=== PATIENT | male | born 1950 | race American Indian/Alaskan Native ===

== ENCOUNTER 2021-01-10 08:02 | Inpatient (IN) | payer MEDICARE ==
--- NOTE | 2021-01-10 08:25 | Emergency Department Report ---
HPI - General Chief Complaint: Neuro Symptoms/Deficit Time Seen by Provider: 01/10/21 08:19 - HPI HPI: This is a 70-year-old -[place] male who presents to the emergency department from home with a complaint of left hand numbness and left arm weakn ess that started about 3 hours ago. The patient has a past medical history of a previous stroke that he says did not leave him with any residual neurological deficits. He also has a history of hypertension and says that he recently was told he has developed diabetes. He did not take anything for his symptoms prior to presentation. He denies any headache, vision change, slurred speech, chest pain, back pain. No recent travel or sick contacts at home. He denies any tobacco or illicit drug use. ED Past Medical Hx - Past Medical History Previous Medical History?: Yes Hx Hypertension: Yes Hx Heart Attack/AMI: Yes Additional medical history: stroke 3 years ago, no deficits - Surgical History Past Surgical History?: No - Social History Smoking Status: Never Smoker Substance Use Type: None ED Review of Systems ROS: Stated complaint: LT SIDE NUMB Other details as noted in HPI Comment: All other systems reviewed and negative Constitutional: weakness. denies: chills, fever Eyes: denies: eye pain, vision change ENT: denies: ear pain, throat pain Respiratory: denies: cough, shortness of breath Cardiovascular: denies: chest pain, palpitations Gastrointestinal: denies: abdominal pain, vomiting Genitourinary: denies: dysuria, discharge Musculoskeletal: denies: back pain, arthralgia Skin: denies: rash, lesions Neurological: weakness, numbness. denies: headache Physical Exam - Physical Exam Vital Signs: Vital Signs 01/10/21 08:05 Temperature 98 F Pulse Rate 108 H Respiratory 16 Rate Blood Pressure 203/112 O2 Sat by Pulse 96 Oximetry Physical Exam: GENERAL: The patient is well-developed well-nourished. HENT: Normocephalic. Atraumatic. Patient has moist mucous membranes. EYES: Extraocular motions are intact. Pupils equal reactive to light bilaterally. No nystagmus. NECK: Supple. Trachea is midline. CHEST/LUNGS: Clear to auscultation. There is no respiratory distress noted. HEART/CARDIOVASCULAR: Regular. There is no tachycardia. There is no murmur. ABDOMEN: Abdomen is soft, nontender. Patient has normal bowel sounds. There is no abdominal distention. SKIN: Skin is warm and dry. NEURO: The patient is awake, alert, and oriented. The patient is cooperative. There is some subjective decrease sensation to the left distal forearm and hand when compared to the right. There is a mild left upper extremity pronator drift. The left director security risk management strength is weak when compared to the right. No facial asymmetry. No slurred speech. MUSCULOSKELETAL: There is no tenderness or deformity. Radial pulse +2/4 and capillary refill less than 2 seconds to the affected left upper extremity. ED Course Vital Signs 01/10/21 08:05 Temperature 98 F Pulse Rate 108 H Respiratory 16 Rate Blood Pressure 203/112 O2 Sat by Pulse 96 Oximetry - Consultations Consultation #1: 01/10/21 08:51 Patient was seen by the telemedicine neurologist, Dr. Wilson. The patient went to sleep normal and woke up with the strokelike symptoms and therefore is outside of the TPA window. Dr. Wilson feels that he sees some developing stroke in the right occipital region. He recommends CT angiography of the head and ne ck and if no need for interventional thrombectomy intervention, the patient will be admitted for further stroke work-up. ED Medical Decision Making - Lab Data Result diagrams: 01/10/21 08:27 01/10/21 08:27 Lab Results 01/10/21 01/10/21 01/10/21 Range/Units 08:27 08:27 08:27 WBC 7.5 (4.5-11.0) K/mm3 RBC 4.02 (3.65-5.03) M/mm3 Hgb 12.1 (11.8-15.2) gm/dl Hct 37.3 (35.5-45.6) % MCV 93 (84-94) fl MCH 30 (28-32) pg MCHC 33 (32-34) % RDW 14.7 (13.2-15.2) % Plt Count 122 L (140-440) K/mm3 Lymph % (Auto) 12.5 L (13.4-35.0) % Delta % (Auto) 4.2 (0.0-7.3) % Eos % (Auto) 0.3 (0.0-4.3) % Baso % (Auto) 0.5 (0.0-1.8) % Lymph # (Auto) 0.9 L (1.2-5.4) K/mm3 Delta # (Auto) 0.3 (0.0-0.8) K/mm3 Eos # (Auto) 0.0 (0.0-0.4) K/mm3 Baso # (Auto) 0.0 (0.0-0.1) K/mm3 Seg Neutrophils % 82.5 H (40.0-70.0) % Seg Neutrophils # 6.2 (1.8-7.7) K/mm3 PT 12.5 (12.2-14.9) Sec. INR 0.95 (0.87-1.13) APTT 31.8 (24.2-36.6) Sec. Thrombin Time 16.0 (15.1-19.6) Sec. Sodium 141 (137-145) mmol/L Potassium 4.4 (3.6-5.0) mmol/L Chloride 102.8 (98-107) mmol/L Carbon Dioxide 28 (22-30) mmol/L Anion Gap 15 mmol/L BUN 17 (9-20) mg/dL Creatinine 1.0 (0.8-1.3) mg/dL Estimated GFR > 60 ml/min BUN/Creatinine Ratio 17 % Glucose 101 H (75-100) mg/dL Calcium 9.4 (8.4-10.2) mg/dL Total Bilirubin 0.30 (0.1-1.2) mg/dL AST 21 (5-40) units/L ALT 15 (7-56) units/L Alkaline Phosphatase 70 (35-129) units/L Total Creatine Kinase 133 (55-170) units/L CK-MB (CK-2) 2.7 (0.0-4.0) ng/mL CK-MB (CK-2) Rel Index 2.0 (0-4) Troponin T < 0.010 (0.00-0.029) ng/mL Total Protein 7.7 (6.3-8.2) g/dL Albumin 4.5 (3.9-5) g/dL Albumin/Globulin Ratio 1.4 % Plasma/Serum Alcohol (0-0.07) % // Range/Units 08:27 WBC (4.5-11.0) K/mm3 RBC (3.65-5.03) M/mm3 Hgb (11.8-15.2) gm/dl Hct (35.5-45.6) % MCV (84-94) fl MCH (28-32) pg MCHC (32-34) % RDW (13.2-15.2) % Plt Count (140-440) K/mm3 Lymph % (Auto) (13.4-35.0) % Delta % (Auto) (0.0-7.3) % Eos % (Auto) (0.0-4.3) % Baso % (Auto) (0.0-1.8) % Lymph # (Auto) (1.2-5.4) K/mm3 Delta # (Auto) (0.0-0.8) K/mm3 Eos # (Auto) (0.0-0.4) K/mm3 Baso # (Auto) (0.0-0.1) K/mm3 Seg Neutrophils % (40.0-70.0) % Seg Neutrophils # (1.8-7.7) K/mm3 PT (12.2-14.9) Sec. INR (0.87-1.13) APTT (24.2-36.6) Sec. Thrombin Time (15.1-19.6) Sec. Sodium (137-145) mmol/L Potassium (3.6-5.0) mmol/L Chloride (98-107) mmol/L Carbon Dioxide (22-30) mmol/L Anion Gap mmol/L BUN (9-20) mg/dL Creatinine (0.8-1.3) mg/dL Estimated GFR ml/min BUN/Creatinine Ratio % Glucose (75-100) mg/dL Calcium (8.4-10.2) mg/dL Total Bilirubin (0.1-1.2) mg/dL AST (5-40) units/L ALT (7-56) units/L Alkaline Phosphatase (35-129) units/L Total Creatine Kinase (55-170) units/L CK-MB (CK-2) (0.0-4.0) ng/mL CK-MB (CK-2) Rel Index (0-4) Troponin T (0.00-0.029) ng/mL Total Protein (6.3-8.2) g/dL Albumin (3.9-5) g/dL Albumin/Globulin Ratio % Plasma/Serum Alcohol < 0.01 (0-0.07) % - EKG Data -: EKG Interpreted by [facility] EKG shows normal: sinus rhythm, axis, intervals, QRS complexes (Incomplete right bundle branch block), ST-T waves Rate: normal - EKG Data When compared to previous EKG there are: previous EKG unavailable Interpretation: other (Sinus rhythm, normal axis, rate of 94 bpm, incomplete right bundle branch block) - Radiology Data Radiology results: report reviewed CT HEAD WITHOUT CONTRAST HISTORY: MAIN Left-sided numbness COMPARISON: None TECHNIQUE: CT imaging of the head was performed in the axial, sagittal, and coronal projections and bone algorithm in axial projection in the soft tissue algorithm. All CT scans at this location are performed using CT dose reduction for ALARA by means of automated exposure control. CONTRAST: None. FINDINGS: Cerebral and Cerebellar Hemispheres: Large zone of decreased attenuation involving the right posterior parietal lobe and right occipital lobe with effacement of overlying sulci and loss of the barrett-white matter differentiation. No extra-axial fluid collection. Ventricles: Normal in size and configuration for age. Osseous Structures: No significant abnormality. Visualized Paranasal Sinuses: No significant abnormality. Additional Findings: None IMPRESSION: 1. Abnormal CT of the brain is noted, most consistent with infarct. CTA head with intravenous contrast CLINICAL HISTORY: Code stroke. Cerebrovascular accident. Abnormal head CT with evidence of right occipital and parietal infarction in the posterior cerebral artery distribution. TECHNIQUE: 0.625 mm thick contiguous axial scans were obtained from the skull base to the skull vertex during rapid bolus administration of intravenous contrast material. Multiplanar reconstructions were produced in the coronal and sagittal planes. In addition 3 plane MIP instructions were produced and reviewed for this report. The axial source images and reconstructed images were reviewed for this report. CONTRAST DOSE REPORT: Omnipaque 350: 100 ml administered intravenously. All CT scans at this location are performed using CT dose reduction for ALARA by means of automated exposure control. FINDINGS: Internal carotid arteries:Cony, cavernous, opthalmic, clinoid and supraclinoid segments of the ICAs have an unremarkable appearance. Middle cerebral arteries:Normal and symm etrical M1 segments of the middle cerebral arteries are demonstrated. No abnormalities are seen on evaluation of the insular or opercular branches. Anterior cerebral arteries:Bilaterally symmetrical A1 segments are demonstrated. No abnormalities are seen along the course of the A2 segments or their visualized pericallosal branches. Vertebral arteries:Bilaterally symmetrical vertebral arteries are demonstrated. Both vertebral arteries contribute to the basilar artery origin. Basilar artery:Basilar artery has an unremarkable appearance. Posterior cerebral arteries: Bilaterally symmetrical posterior cerebral arteries are identified. Dural sinuses: Dural venous sinuses are well demonstrated on this exam. There is no evidence of dural sinus thrombosis. IMPRESSION: No significant abnormality on CTA head. CTA neck without and with intravenous contrast material CLINICAL HISTORY: MAIN TECHNIQUE: Following acquisition of a timing bolus 0.625 mm thick contiguous axial scans were obtained from aortic arch to the skull base during rapid bolus intravenous contrast infusion. In addition to evaluation of axial source images multiplanar reconstructions were produced and reviewed for this report. 3 plane MIP reconstructions were produced and reviewed. Contrast dose report: Omnipaque 350: 100 ml, administered intravenously All CT examinations performed at this facility utilize modulated dose reduction, iterative reconstruction or weight-based dosing, as appropriate, to obtain a radiation dose which is as low as can reasonably be achieved. FINDINGS: Thoracic aorta:No abnormalities are identified along the course of the thoracic aorta..The origins of the great vessels have an unremarkable appearance. Brachiocephalic artery, left common carotid artery origin and left subclavian artery all have an unremarkable appearance. Right carotid artery:No abnormalities are seen along the course of the RCCA, at the right carotid bifurcation or along the cervical portions of the GARIMA. Left carotid artery: No abnormalities are noted along the course of the left common carotid artery, at the left carotid bifurcation or along the course of the cervical segments of the LICA. Posterior circulation:The vertebral arteries have an unremarkable appearance. Both vertebral arteries contribute to the basilar artery origin. The basilar artery has an unremarkable appearance. The degree of stenosis, if any, is determined utilizing NASCET like criteria. In this case there is no indication of hemodynamically significant stenosis at the carotid bifurcations or elsewhere. There is a mass in the lower pole of the left lobe of the thyroid gland. Correlation with dedicated thyroid ultrasound is advised. Evaluation of the nonvascular soft tissue structures reveal no additional abnormality. There is no indication of cervical lymphadenopathy. No abnormalities are seen along the course of the airway. Visualized portions of the parotid glands and the submandibular salivary glands have a normal appearance. Evaluation of the lung apices reveals no evidence of lung nodule or infiltrate. Widespread cervical spondylosis is noted. Degenerative changes superimposed on unfavorably narrowed central spinal canal contribute to central canal stenosis at multiple levels including C3-4, C4-5, C5-6 and C6-7 levels. This is most pronounced at the C4-5 level where the AP diameter of the spinal canal is about 6 mm. IMPRESSION: 1. No indication of hemodynamically significant stenosis at the carotid bifurcations or elsewhere. 2. Widespread cervical spondylosis with multifocal central canal stenosis. 3. Incidental thyroid nodule measuring 2 cm located in lower pole left lobe thyroid gland. Dedicated thyroid ultrasound is advised. - Medical Decision Making This patient presents to the emergency department with a complaint of left upper extremity numbness and weakness. The patient woke up with the symptoms and therefore is outside of the window for TPA. A code stroke was initiated. The patient was seen by the telemedicine neurologist who felt that the CT shows a right occipital/parietal developing stroke. Radiology also feels that there is an acute infarct in this area. The patient is a 2 on the NIH stroke scale. Neurology recommended CT angiography studies of the head and neck. These did not show any acute occlusion, thrombosis, or significant stenosis that would require transfer for intervention. The patient's labs have been mostly unremarkable including CBC, metabolic panel, troponin, coags. Patient does present with elevated blood pressure and has received some IV antihypertensive medication. He was given a full dose aspirin after the negative CT head. Patient will be admitted to the hospital for further evaluation and treatment and was accepted for admission by the hospitalist, Dr. Ventura. Critical Care Time: Yes Critical care time in (mins) excluding proc time.: 35 Critical care attestation.: If time is entered above; I have spent that time in minutes in the direct care of this critically ill patient, excluding procedure time. Critical care time was spent on this patient in doing his initial evaluation, multiple reevaluations, ordering and interpretation of labs and imaging, discussion with telemedicine neurology, discussion with radiology, multiple discussions with the patient. Critical Care Time: 35 minutes ED Disposition Clinical Impression: Hypertensive urgency CVA (cerebral vascular accident) Qualifiers: CVA mechanism: unspecified Qualified Code(s): I63.9 - Cerebral infarction, uns pecified Disposition: OP ADMIT IP TO THIS HOSP Is pt being admited?: Yes Condition: Serious Referrals: PRIMARY CARE,MD [Primary Care Provider] - 3-5 Days Time of Disposition: 10:12 - Assessment Assessment Interval: Baseline - Level of Consciousness 1a. Level of Consciousness: alert/keenly responsive - LOC Questions 1b. LOC Questions: answers both correctly - LOC Command 1c. LOC Commands: performs tasks correctly - Best Gaze 2. Best Gaze: normal - Visual 3. Visual: no visual loss - Facial Palsy 4. Facial Palsy: normal symmetrical movement - Motor Arm 5a. Motor Arm Left: drift 5b. Motor Arm Right: no drift - Motor Leg 6a. Motor Leg Left: no drift 6b. Motor Leg Right: no drift - Limb Ataxia 7. Limb Ataxia: absent - Sensory 8. Sensory: mild/moderate sensory loss - Best Language 9. Best Language: no aphasia - Dysarthria 10. Dysarthria: normal - Extinction and Inattention 11. Extinction/Inattention: no abnormality - Scoring Total Score: 2 Stroke Severity: Minor Stroke
--- NOTE | 2021-01-10 08:53 | Consultation ---
Medications and Allergies Allergies Allergy/AdvReac Type Severity Reaction Status Date / Time No Known Allergies Allergy Verified 01/10/21 08:05 Physical Examination - Vital Signs Vital Signs: Vital Signs Temp Pulse Resp BP Pulse Ox 98 F 108 H 16 203/112 96 01/10/21 08:05 01/10/21 08:05 01/10/21 08:05 01/10/21 08:05 01/10/21 08:05 Assessment and Plan [facility] Consult Note # Demographics Consult Type: Acute Stroke Level 2 (4.5-24 hrs) Patient Location: Emergency Room First Name: Carson Last Name: Hari Age: 70 Gender: Male Time of Initial Page (): 01/10/2021, 08:39 Time of Return Call (): 01/10/2021, 08:40 # HPI History: 70M says he woke with left arm numbness, last well before bed. No h/o similar. Also noted left facial tingling. The left arm is also weak. Does not think he slept on it strangely. # Scores Time of exam and NIHSS (): 01/10/2021, 08:40 Level of Consciousness 1a: [0] = Alert; keenly responsive LOC Questions 1b: [0] = Answers both questions correctly LOC Commands 1c: [0] = Performs both tasks correctly Best Gaze 2: [0] = Normal Visual 3: [0] = No visual loss Facial Palsy 4: [0] = Normal symmetrical movements Motor Arm Left 5a: [1] = Drift Motor Arm Right 5b: [0] = No drift Motor Leg Left 6a: [0] = No drift Motor Leg Right 6b: [0] = No drift Limb Ataxia 7: [0] = Absent Sensory 8: [1] = [id number] sensory loss Best Language 9: [0] = No aphasia Dysarthria 10: [0] = Normal Extinction and Inattention 11: [0] = No abnormality NIHSS Total: 2 # Data Time Head CT personally read by me ( Time): 01/10/2021, 08:[address]: no bleed, subacute ischemic stroke, right occipital # Assessment Impression: Ischemic Stroke (Subacute) # Plan Thrombolytic/Intervention: NOT IV Thrombolytic or IA Intervention Thrombolytic Exclusion (< 3 hour window): time of onset unclear Thrombolytic Exclusion: > 4.5 hours Intraarterial Exclusion: other (see below), pending CTA head/neck, however significant completed stroke visible on CT non-contrast. Target Blood Pressure: SBP < 220 Imaging: (urgency: STAT in ED): CT Angiogram Head and CT Angiogram Neck Imaging: (urgency: routine admission): MRI Brain without contrast Diagnostic Test: echo without bubble study Medication: aspirin 81 mg daily, start statin with goal of LDL < 70 Other: LDL < 70, permissive hypertension, telemetry monitoring, I have discussed my recommendations with the referring provider Additional Recommendations: If no cause for stroke found based on above, would pursue outpatient cardiac monitoring jacquelyn beckham. Disposition: admit
[2021-01-10 08:59] LABS: Creatine Kinase MB 2.7 ng/mL (0.0-4.0)
--- NOTE | 2021-01-10 08:59 | Cat Scan Report ---
CT HEAD WITHOUT CONTRAST HISTORY: MAIN Left-sided numbness COMPARISON: None TECHNIQUE: CT imaging of the head was performed in the axial, sagittal, and coronal projections and bone algori thm in axial projection in the soft tissue algorithm. All CT scans at this location are performed using CT dose reduction for ALARA by means of automated e xposure control. CONTRAST: None. FINDINGS: Cerebral and Cerebellar Hemispheres: Large zone of decreased attenuation involving the right posterio r parietal lobe and right occipital lobe with effacement of overlying sulci and loss of the barrett-whit e matter differentiation. No extra-axial fluid collection. Ventricles: Normal in size and configuration for age. Osseous Structures: No significant abnormality. Visualized Paranasal Sinuses: No significant abnormality. Additional Findings: None IMPRESSION: 1. Abnormal CT of the brain is noted, most consistent with infarct. Recommend MR for further evaluat ion CODE STROKE: Time of Communication ([employer]/CDT): 0745 hours Central time Licensed Practitioner Receiving Report: Dr. Carlos A DODSON Signer Name: Soham Herman MD Signed: 01/10/2021 8:54 AM Workstation Name: [id number]
[2021-01-10 09:00] LABS: Alanine Aminotransferase 15 units/L (7-56); Albumin 4.5 g/dL (3.9-5); BUN/Creatinine Ratio 17; Blood Urea Nitrogen 17 mg/dL (9-20); Calcium 9.4 mg/dL (8.4-10.2); Hemolysis Index 2
[2021-01-10 09:09] LABS: Basophils % (Auto) 0.5 % (0.0-1.8); Eosinophils % (Auto) 0.3 % (0.0-4.3); Hematocrit 37.3 % (35.5-45.6); Hemoglobin 12.1 gm/dl (11.8-15.2); Lymphocytes # (Auto) 0.9 K/mm3 (1.2-5.4); Lymphocytes % (Auto) 12.5 % (13.4-35.0); Mean Corpuscular HGB Conc 33 % (32-34); Mean Corpuscular Volume 93 fl (84-94); Monocytes # (Auto) 0.3 K/mm3 (0.0-0.8); Monocytes % (Auto) 4.2 % (0.0-7.3); Red Blood Count 4.02 M/mm3 (3.65-5.03); Red Cell Distribution Width 14.7 % (13.2-15.2)
[2021-01-10 09:16] LABS: Platelet Count 122 K/mm3 (140-440)
--- NOTE | 2021-01-10 10:08 | Cat Scan Report ---
CTA head with intravenous contrast CLINICAL HISTORY: Code stroke. Cerebrovascular accident. Abnormal head CT with evidence of right occipital and parietal infarction in the posterior cerebral artery distribution. TECHNIQUE: 0.625 mm thick contiguous axial scans were obtained from the skull base to the skull vertex during r apid bolus administration of intravenous contrast material. Multiplanar reconstructions were produced in the coronal and sagittal planes. In addition 3 plane MIP instructions were produced and reviewed for this report. The axial source images and reconstructed images were reviewed for this report. CONTRAST DOSE REPORT: Omnipaque 350: 100 ml administered intravenously. All CT scans at this location are performed using CT dose reduction for ALARA by means of automated e xposure control. FINDINGS: Internal carotid arteries:Cony, cavernous, opthalmic, clinoid and supraclinoid segments of the ICAs have an unremarkable appearance. Middle cerebral arteries:Normal and symmetrical M1 segments of the middle cerebral arteries are demon strated. No abnormalities are seen on evaluation of the insular or opercular branches. Anterior cerebral arteries:Bilaterally symmetrical A1 segments are demonstrated. No abnormalities are seen along the course of the A2 segments or their visualized pericallosal branches. Vertebral arteries:Bilaterally symmetrical vertebral arteries are demonstrated. Both vertebral arteri es contribute to the basilar artery origin. Basilar artery:Basilar artery has an unremarkable appearance. Posterior cerebral arteries: Bilaterally symmetrical posterior cerebral arteries are identified. Dural sinuses: Dural venous sinuses are well demonstrated on this exam. There is no evidence of dural sinus thrombosis. IMPRESSION: No significant abnormality on CTA head. Signer Name: Moisés Bonilla MD Signed: 01/10/2021 10:03 AM Workstation Name: [id number]
[2021-01-10] MEDS ORDERED: ASPIRIN 81 MG TAB CHEW PO ONE (10:11)
[2021-01-10 10:19] LABS: INR 0.95 (0.87-1.13)
[2021-01-10 10:20] LABS: Partial Thromboplastin Time 31.8 Sec. (24.2-36.6)
--- NOTE | 2021-01-10 10:33 | Cat Scan Report ---
CTA neck without and with intravenous contrast material CLINICAL HISTORY: MAIN TECHNIQUE: Following acquisition of a timing bolus 0.625 mm thick contiguous axial scans were obtained from aort ic arch to the skull base during rapid bolus intravenous contrast infusion. In addition to evaluation of axial source images multiplanar reconstructions were produced and reviewed for this report. 3 matt ne MIP reconstructions were produced and reviewed. Contrast dose report: Omnipaque 350: 100 ml, administered intravenously All CT examinations performed at this facility utilize modulated dose reduction, iterative reconstruc tion or weight-based dosing, as appropriate, to obtain a radiation dose which is as low as can reason ably be achieved. FINDINGS: Thoracic aorta:No abnormalities are identified along the course of the thoracic aorta..The origins of the great vessels have an unremarkable appearance. Brachiocephalic artery, left common carotid arter y origin and left subclavian artery all have an unremarkable appearance. Right carotid artery:No abnormalities are seen along the course of the RCCA, at the right carotid bif urcation or along the cervical portions of the GARIMA. Left carotid artery: No abnormalities are noted along the course of the left common carotid artery, a t the left carotid bifurcation or along the course of the cervical segments of the LICA. Posterior circulation:The vertebral arteries have an unremarkable appearance. Both vertebral arteries contribute to the basilar artery origin. The basilar artery has an unremarkable appearance. The degree of stenosis, if any, is determined utilizing NASCET like criteria. In this case there is no indication of hemodynamically significant stenosis at the carotid bifurcations or elsewhere. There is a mass in the lower pole of the left lobe of the thyroid gland. Correlation with dedicated t hyroid ultrasound is advised. Evaluation of the nonvascular soft tissue structures reveal no additional abnormality. There is no in dication of cervical lymphadenopathy. No abnormalities are seen along the course of the airway. Visua lized portions of the parotid glands and the submandibular salivary glands have a normal appearance. Evaluation of the lung apices reveals no evidence of lung nodule or infiltrate. Widespread cervical spondylosis is noted. Degenerative changes superimposed on unfavorably narrowed c entral spinal canal contribute to central canal stenosis at multiple levels including C3-4, C4-5, C5- 6 and C6-7 levels. This is most pronounced at the C4-5 level where the AP diameter of the spinal deepa l is about 6 mm. IMPRESSION: 1. No indication of hemodynamically significant stenosis at the carotid bifurcations or elsewhere. 2. Widespread cervical spondylosis with multifocal central canal stenosis. 3. Incidental thyroid nodule measuring 2 cm located in lower pole left lobe thyroid gland. Dedicated thyroid ultrasound is advised. See below for follow-up recommendation. Nonpalpable nodules detected on US or other anatomic imaging studies are termed incidentally discover ed nodules or incidentalomas. Nonpalpable nodules have the same risk of malignancy as palpable nodule s with the same size. Generally, only nodules >1 cm should be evaluated, since they have a greater po tential to be clinically significant cancers. (SUZANNA, 2009). Follow up for incidental thyroid nodules <1 cm is not recommended. In patients 35 years with an incidental thyroid nodule detected on CT, MRI, or extrathyroidal ultraso und, dedicated thyroid ultrasound is recommended if the nodule is 1.5 cm, has no suspicious imaging f eatures, and if the patient has normal life expectancy. Signer Name: Moisés Bonilla MD Signed: 01/10/2021 10:29 AM Workstation Name: [id number]
[2021-01-10] MEDS ORDERED: HYDROmorphone 1 MG/1 ML INJ IV PRN (19:57)
[2021-01-10] MEDS ORDERED: oxyCODONE /ACETAMINOPHEN 5-325MG TAB PO PRN (19:57)
[2021-01-10] MEDS ORDERED: ONDANSETRON 4 MG/2 ML INJ IV PRN (19:57)
[2021-01-10] MEDS: SODIUM CHLORIDE 0.9% 1000 ML 1,000 ML IV SCH (20:47)
[2021-01-11 01:53] LABS: Bilirubin,Urine NEG (Negative); Blood,Urine NEG (Negative); Color,Urine Yellow (Yellow); Mucus,Urine FEW /HPF; Protein,Urine <15 mg/dL mg/dL (Negative); Urobilinogen,Urine < 2.0 mg/dL (<2.0)
[2021-01-11 01:55] LABS: Amphetamine Screen,Urine PRESUMPTIVE NEGATIVE; Benzodiazepines Screen,Urine PRESUMPTIVE NEGATIVE; Cannabinoid Screen,Urine PRESUMPTIVE NEGATIVE; Cocaine Screen,Urine PRESUMPTIVE NEGATIVE; Methadone Screen,Urine PRESUMPTIVE NEGATIVE; Opiate Screen,Urine PRESUMPTIVE NEGATIVE
[2021-01-11 04:42] LABS: Basophils % (Auto) 0.4 % (0.0-1.8); Eosinophils % (Auto) 0.2 % (0.0-4.3); Hematocrit 33.8 % (35.5-45.6); Hemoglobin 11.1 gm/dl (11.8-15.2); Lymphocytes # (Auto) 0.7 K/mm3 (1.2-5.4); Lymphocytes % (Auto) 8.1 % (13.4-35.0); Mean Corpuscular HGB Conc 33 % (32-34); Mean Corpuscular Volume 92 fl (84-94); Monocytes # (Auto) 0.4 K/mm3 (0.0-0.8); Monocytes % (Auto) 4.9 % (0.0-7.3); Platelet Count 118 K/mm3 (140-440); Red Blood Count 3.69 M/mm3 (3.65-5.03); Red Cell Distribution Width 14.4 % (13.2-15.2)
[2021-01-11] MEDS ORDERED: hydrALAZINE 20 MG/1 ML INJ IV ONE (05:46)
[2021-01-11 08:27] LABS: Alanine Aminotransferase 11 units/L (7-56); BUN/Creatinine Ratio 18; Blood Urea Nitrogen 16 mg/dL (9-20); Calcium 8.9 mg/dL (8.4-10.2); Chol/HDL Ratio 7.48 %; HDL Cholesterol 35 mg/dL (40-59); Hemolysis Index 57; LDL Cholesterol,Direct 220 mg/dL (50-130)
[2021-01-11] MEDS: ACETAMINOPHEN 325 MG TAB PO PRN (09:17)
[2021-01-11] MEDS: ASPIRIN 325 MG TAB PO SCH (09:20)
--- NOTE | 2021-01-11 13:57 | History and Physical Report ---
History of Present Illness Date of examination: 01/11/21 Date of admission: 01/10/21 15:18 Chief complaint: Left-sided weakness since 3 hours History of present illness: This is a 70-year-old -Stateless male who presents to the emergency department from home with a complaint of left hand numbness and left arm weakness that started about 3 hours ago. The patient has a past medical history of a previous stroke that he says did not leave him with any residual neurological deficits. He also has a history of hypertension and says that he recently was told he has developed diabetes. He did not take anything for his symptoms prior to presentation. He denies any headache, vision change, slurred speech, chest pain, back pain. No recent travel or sick contacts at home. He denies any tobacco or illicit drug use. No exacerbating or relieving factors. No fever or chills. No exposure to coronavirus. - Past Medical History Previous Medical History?: Yes --Hypertension: Yes --Heart Attack/AMI: Yes Additional medical history: stroke 3 years ago, no deficits - Surgical History Past Surgical History?: No - Social History Smoking Status: Never Smoker Substance Use Type: None Family history Htn Review of Systems ROS: Stated complaint: Left-sided numbness and left-sided weakness Other details as noted in HPI Constitutional no weight loss or weight gain no fever or chills HEENT no sore throat no post nasal drip no diplopia Neck no neck stiffness no lymph gland enlargement Chest and lungs no shortness of breath cough or wheezing CVS no chest pain no diaphoresis no palpitations GI no nausea no vomiting no diarrhea Genitourinary system no dysuria no flank pain Musculoskeletal system no muscle pains no joint pains [facility] left-sided numbness and left-sided weakness Skin no rash no itching Psychiatric no depression no homicidal or suicidal tendencies Hematologic no lymphedema or bruising Endocrine no polydipsia no polyuria no cold intolerance no heat intolerance Medications and Allergies Allergies Allergy/AdvReac Type Severity Reaction Status Date / Time No Known Allergies Allergy Verified 01/10/21 08:05 Active Meds: Active Medications Acetaminophen (Acetaminophen 325 Mg Tab) 650 mg PO Q4H PRN PRN Reason: Pain MILD(1-3)/Fever >100.5/GUIDO Last Admin: 01/11/21 09:17 Dose: 650 mg Documented by: Aspirin (Aspirin 325 Mg Tab) 325 mg PO QDAY [facility] Last Admin: 01/11/21 09:20 Dose: 325 mg Documented by: Hydromorphone HCl (Hydromorphone 1 Mg/1 Ml Inj) 0.5 mg IV Q3H PRN PRN Reason: Pain , Severe (7-10) Sodium Chloride (Nacl 0.9% 1000 Ml) 1,000 mls @ 75 mls/hr IV DIRECT [facility] Last Admin: 01/10/21 20:47 Dose: 75 mls/hr Documented by: Ondansetron HCl (Ondansetron 4 Mg/2 Ml Inj) 4 mg IV Q8H PRN PRN Reason: Nausea And Vomiting Oxycodone/Acetaminophen (Oxycodone /Acetaminophen 5-325mg Tab) 1 tab PO Q6H PRN PRN Reason: Pain, Moderate (4-6) Last Admin: 01/10/21 20:45 Dose: 1 tab Documented by: Sodium Chloride (Sodium Chloride 0.9% 10 Ml Flush Syringe) 10 ml IV PRN PRN PRN Reason: LINE FLUSH Sodium Chloride (Sodium Chloride 0.9% 10 Ml Flush Syringe) 10 ml IV BID [facility] Last Admin: 01/11/21 09:17 Dose: 10 ml Documented by: Sodium Chloride (Sodium Chloride 0.9% 10 Ml Flush Syringe) 10 ml IV PRN PRN PRN Reason: LINE FLUSH Exam - Constitutional Vitals: Temp Pulse Resp BP Pulse Ox 98.6 F 80 18 147/82 92 01/11/21 11:10 01/11/21 13:47 01/11/21 11:10 01/11/21 11:10 01/11/21 11:10 General appearance: Present: no acute distress, well-nourished - EENT Eyes: Present: PERRL ENT: hearing intact, clear oral mucosa - Neck Neck: Present: supple, normal ROM - Respiratory Respiratory effort: normal Respiratory: bilateral: CTA - Cardiovascular Heart rate: 78 Rhythm: regular Heart Sounds: Present: S1 & S2. Absent: rub, click - Extremities Extremities: no ischemia, pulses symmetrical, No edema Peripheral Pulses: within normal limits - Abdominal General gastrointestinal: Present: soft, non-tender, non-distended, normal bowel sounds Male genitourinary: Present: normal - Rectal Rectal Exam: deferred - Integumentary Integumentary: Present: clear, warm, dry - Musculoskeletal Musculoskeletal: left sided weakness (Left upper extremity weakness 2/5. Left lower extremity weakness 4/5 power) - Psychiatric Psychiatric: appropriate mood/affect, intact judgment & insight - Neurologic Neurologic: CNII-XII intact, moves all extremities - Allied Health Allied health notes reviewed: nursing, case management HEART Score - HEART Score History: Slightly suspicious Age: > 65 Risk factors: 1-2 risk factors Troponin: Troponin T < 0.010 ng/mL (0.00-0.029) 01/10/21 08:27 Troponin: < normal limit - Critical Actions Critical Actions: 0-3 pts:0.9-1.7%risk of adverse cardiac event.Candidate for discharge Results - Labs CBC & Chem 7: 01/11/21 04:02 01/11/21 04:02 Labs: Laboratory Last Values WBC 8.0 K/mm3 (4.5-11.0) 01/11/21 04:02 RBC 3.69 M/mm3 (3.65-5.03) 01/11/21 04:02 Hgb 11.1 gm/dl (11.8-15.2) L 01/11/21 04:02 Hct 33.8 % (35.5-45.6) L 01/11/21 04:02 MCV 92 fl (84-94) 01/11/21 04:02 MCH 30 pg (28-32) 01/11/21 04:02 MCHC 33 % (32-34) 01/11/21 04:02 RDW 14.4 % (13.2-15.2) 01/11/21 04:02 Plt Count 118 K/mm3 (140-440) L 01/11/21 04:02 Lymph % (Auto) 8.1 % (13.4-35.0) L 01/11/21 04:02 [place] % (Auto) 4.9 % (0.0-7.3) 01/11/21 04:02 Eos % (Auto) 0.2 % (0.0-4.3) 01/11/21 04:02 Baso % (Auto) 0.4 % (0.0-1.8) 01/11/21 04:02 Lymph # (Auto) 0.7 K/mm3 (1.2-5.4) L 01/11/21 04:02 [place] # (Auto) 0.4 K/mm3 (0.0-0.8) 01/11/21 04:02 Eos # (Auto) 0.0 K/mm3 (0.0-0.4) 01/11/21 04:02 Baso # (Auto) 0.0 K/mm3 (0.0-0.1) 01/11/21 04:02 Seg Neutrophils % 86.4 % (40.0-70.0) H 01/11/21 04:02 Seg Neutrophils # 6.9 K/mm3 (1.8-7.7) 01/11/21 04:02 PT 12.5 Sec. (12.2-14.9) 01/10/21 08:27 INR 0.95 (0.87-1.13) 01/10/21 08:27 APTT 31.8 Sec. (24.2-36.6) 01/10/21 08:27 Thrombin Time 16.0 Sec. (15.1-19.6) 01/10/21 08:27 Sodium 141 mmol/L (137-145) 01/11/21 04:02 Potassium 4.4 mmol/L (3.6-5.0) 01/11/21 04:02 Chloride 104.3 mmol/L (98-107) 01/11/21 04:02 Carbon Dioxide 25 mmol/L (22-30) 01/11/21 04:02 Anion Gap 16 mmol/L 01/11/21 04:02 BUN 16 mg/dL (9-20) 01/11/21 04:02 Creatinine 0.9 mg/dL (0.8-1.3) 01/11/21 04:02 Estimated GFR > 60 ml/min 01/11/21 04:02 BUN/Creatinine Ratio 18 % 01/11/21 04:02 Glucose 103 mg/dL (75-100) H 01/11/21 04:02 Hemoglobin A1c 5.4 % (4-6) 01/11/21 04:02 Calcium 8.9 mg/dL (8.4-10.2) 01/11/21 04:02 Total Bilirubin 0.40 mg/dL (0.1-1.2) 01/11/21 04:02 AST 21 units/L (5-40) 01/11/21 04:02 ALT 11 units/L (7-56) 01/11/21 04:02 Alkaline Phosphatase 64 units/L (35-129) 01/11/21 04:02 Total Creatine Kinase 133 units/L (55-170) 01/10/21 08:27 CK-MB (CK-2) 2.7 ng/mL (0.0-4.0) 01/10/21 08:27 CK-MB (CK-2) Rel Index 2.0 (0-4) 01/10/21 08:27 Troponin T < 0.010 ng/mL (0.00-0.029) 01/10/21 08:27 Total Protein 6.7 g/dL (6.3-8.2) 01/11/21 04:02 Albumin 4.0 g/dL (3.9-5) 01/11/21 04:02 Albumin/Globulin Ratio 1.5 % 01/11/21 04:02 Triglycerides 157 mg/dL (2-149) H 01/11/21 04:02 Cholesterol 262 mg/dL (50-199) H 01/11/21 04:02 LDL Cholesterol Direct 220 mg/dL (50-130) H 01/11/21 04:02 HDL Cholesterol 35 mg/dL (40-59) L 01/11/21 04:02 Cholesterol/HDL Ratio 7.48 % 01/11/21 04:02 Urine Color Yellow (Yellow) 01/10/21 16:38 Urine Turbidity Clear (Clear) 01/10/21 16:38 Urine pH 5.0 (5.0-7.0) 01/10/21 16:38 Ur Specific [place] 1.031 (1.003-1.030) H 01/10/21 16:38 Urine Protein <15 mg/dl mg/dL (Negative) 01/10/21 16:38 Urine Glucose (UA) Neg mg/dL (Negative) 01/10/21 16:38 Urine Ketones Neg mg/dL (Negative) 01/10/21 16:38 Urine Blood Neg (Negative) 01/10/21 16:38 Urine Nitrite Neg (Negative) 01/10/21 16:38 Ur Reducing Substances Not Reportable 01/10/21 16:38 Urine Bilirubin Neg (Negative) 01/10/21 16:38 Urine Ictotest Not Reportable 01/10/21 16:38 Urine Urobilinogen < 2.0 mg/dL (<2.0) 01/10/21 16:38 Ur Leukocyte Esterase Neg (Negative) 01/10/21 16:38 Urine WBC (Auto) 1.0 /HPF (0.0-6.0) 01/10/21 16:38 Urine RBC (Auto) 1.0 /HPF (0.0-6.0) 01/10/21 16:38 Urine Mucus Few /HPF 01/10/21 16:38 Urine Opiates Screen Presumptive negative 01/10/21 Unknown Urine Methadone Screen Presumptive negative 01/10/21 Unknown Ur Barbiturates Screen Presumptive negative 01/10/21 Unknown Ur Phencyclidine Scrn Presumptive negative 01/10/21 Unknown Ur Amphetamines Screen Presumptive negative 01/10/21 Unknown U Benzodiazepines Scrn Presumptive negative 01/10/21 Unknown Urine Cocaine Screen Presumptive negative 01/10/21 Unknown U Marijuana (THC) Screen Presumptive negative 01/10/21 Unknown Drugs of Abuse Note Disclamer 01/10/21 Unknown Plasma/Serum Alcohol < 0.01 % (0-0.07) 01/10/21 08:27 Authorization to Release Body Next of Kin Authorizing the Release of the Body Home Home Address Home Phone # - Imaging and Cardiology EKG: report reviewed (Sinus rhythm no acute ST-T wave changes) CT Scan - head: report reviewed Imaging and Cardiology: CT head Abnormal CT of the head is noted most consistent with infarct. Recommend MRI for further evaluation. In the findings decreased attenuation involving the right posterior parietal lobe and right occipital lobe with effacement of overlying sulci and loss of the barrett-white matter differentiation. No extra-axial fluid collection. Jones/IV: Voiding Method Condom Catheter Assessment and Plan Advance Directives: Yes (Full code) VTE prophylaxis?: Chemical Plan of care discussed with patient/family: Yes - Patient Problems (1) Acute CVA (cerebrovascular accident) Current Visit: Yes Status: Acute Plan to address problem: With right-sided infarct in the MCA territory Stroke protocol MR brain Carotid duplex scan Echocardiogram Aspirin and Plavix initiated Statins initiated (2) Hypertensive urgency Current Visit: Yes Status: Chronic Plan to address problem: Adjust blood pressure medications Initiate valsartan and Coreg and amlodipine Hydralazine 10 mg IV every 3 as needed (3) CAD (coronary artery disease) Current Visit: Yes Status: Chronic Qualifiers: Coronary Disease-Associated Artery/Lesion type: [place] artery [place] vs. transplanted heart: [place] heart Associated angina: without angina Qualified Code(s): I25.10 - Atherosclerotic heart disease of [place] coronary artery without angina pectoris Plan to address problem: Patient on aspirin and Plavix (4) Old cerebrovascular accident (CVA) without late effect Current Visit: Yes Status: Chronic Plan to address problem: CVA 3 years ago without any residual deficits Continue aspirin and Plavix (5) DVT prophylaxis Current Visit: Yes Status: Acute Plan to address problem: On heparin and GI prophylaxis
--- NOTE | 2021-01-11 13:58 | Progress Note ---
Assessment and Plan - Patient Problems (1) Acute CVA (cerebrovascular accident) Current Visit: Yes Status: Acute Plan to address problem: With right-sided infarct in the MCA territory Stroke protocol MR brain Carotid duplex scan Echocardiogram Aspirin and Plavix initiated Statins initiated (2) Hypertensive urgency Current Visit: Yes Status: Chronic Plan to address problem: Adjust blood pressure medications Initiate valsartan and Coreg and amlodipine Hydralazine 10 mg IV every 3 as needed (3) CAD (coronary artery disease) Current Visit: Yes Status: Chronic Qualifiers: Coronary Disease-Associated Artery/Lesion type: [place] artery [place] vs. transplanted heart: [place] heart Associated angina: without angina Qualified Code(s): I25.10 - Atherosclerotic heart disease of [place] coronary artery without angina pectoris Plan to address problem: Patient on aspirin and Plavix (4) Old cerebrovascular accident (CVA) without late effect Current Visit: Yes Status: Chronic Plan to address problem: CVA 3 years ago without any residual deficits Continue aspirin and Plavix (5) DVT prophylaxis Current Visit: Yes Status: Acute Plan to address problem: On heparin and GI prophylaxis Subjective Date of service: 01/11/21 Principal diagnosis: Acute CVA with left-sided weakness Interval history: This is a 70-year-old -[place] male who presents to the emergency department from home with a complaint of left hand numbness and left arm weakness that started about 3 hours ago. The patient has a past medical history of a previous stroke that he says did not leave him with any residual neurological deficits. He also has a history of hypertension and says that he recently was told he has developed diabetes. He did not take anything for his symptoms prior to presentation. He denies any headache, vision change, slurred speech, chest pain, back pain. No recent travel or sick contacts at home. He denies any tobacco or illicit drug use. No exacerbating or relieving factors. No fever or chills. No exposure to coronavirus. Day #2 01/11/2021 Left-sided weakness persists MRI report reviewed Objective - Constitutional Vitals: Vital Signs - 12hr 01/11/21 01/11/21 01/11/21 05:15 05:41 07:59 Temperature 98.2 F 98.7 F Pulse Rate 96 H 94 H Respiratory 18 18 Rate Blood Pressure 172/111 172/111 168/87 O2 Sat by Pulse 99 99 Oximetry 01/11/21 01/11/21 11:10 13:47 Temperature 98.6 F Pulse Rate 93 H 80 Respiratory 18 Rate Blood Pressure 147/82 O2 Sat by Pulse 92 Oximetry General appearance: Present: no acute distress, well-nourished - EENT Eyes: PERRL, EOM intact ENT: hearing intact, clear oral mucosa Ears: bilateral: normal - Neck Neck: supple, normal ROM - Respiratory Respiratory effort: normal Respiratory: bilateral: CTA - Breasts Breasts: normal - Cardiovascular Rhythm: regular Heart Sounds: Present: S1 & S2. Absent: gallop, rub Extremities: pulses intact, No edema, normal color, Full ROM - Gastrointestinal General gastrointestinal: Present: soft, non-tender, non-distended, normal bowel sounds - Genitourinary Male genitourinary: normal - Integumentary Integumentary: clear, warm, dry - Musculoskeletal Musculoskeletal: 1, strength equal bilaterally - Neurologic Neurologic: focal deficits, moves all extremities - Psychiatric Psychiatric: memory intact, appropriate mood/affect, intact judgment & insight - Allied health notes Allied health notes reviewed: nursing, case management - Labs CBC & Chem 7: 01/11/21 04:02 01/11/21 04:02 Labs: Abnormal lab results 01/10/21 01/11/21 01/11/21 Range/Units 16:38 04:02 04:02 Hgb 11.1 L (11.8-15.2) gm/dl Hct 33.8 L (35.5-45.6) % Plt Count 118 L (140-440) K/mm3 Lymph % (Auto) 8.1 L (13.4-35.0) % Lymph # (Auto) 0.7 L (1.2-5.4) K/mm3 Seg Neutrophils % 86.4 H (40.0-70.0) % Glucose 103 H (75-100) mg/dL Triglycerides 157 H (2-149) mg/dL Cholesterol 262 H (50-199) mg/dL LDL Cholesterol Direct 220 H (50-130) mg/dL HDL Cholesterol 35 L (40-59) mg/dL Ur Specific [place] 1.031 H (1.003-1.030) Neck CTA No significant abnormality on CTA head Head CTA No indication of hemodynamically significant stenosis at the carotid bifurcations or elsewhere Widespread cervical spondylosis with multifocal central canal stenosis Incidental thyroid nodule measuring 2 cm located in lower pole left lobe thyroid gland. Dedicated thyroid ultrasound is advised Brain MRI Findings confirmed the presence of a large acute posterior division right MCA infarction involving the lateral aspect of the right occipital and parietal lobes with smaller multiple foci of infarction in the right frontal lobe. No indication of hemorrhagic transformation. 78 left-sided upper extremity weakness 2.5 - Imaging and cardiology EKG: report reviewed (Sinus rhythm) HEART Score - HEART Score Troponin: Troponin T < 0.010 ng/mL (0.00-0.029) 01/10/21 08:27
--- NOTE | 2021-01-11 14:00 | Electrocardiograph Report ---
[facility] Test Date: 2021-01-10 Test Time: 08:13:49 Pat Name: BEBA HAGER Department: Room: A474 1 Gender: M Lead Cook: HELEN : 1950 Requested By: KIRSTEN DODSON Order Number: [id number] Reading MD: Jerry Ugalde Measurements Intervals [place] Rate: 94 P: 37 W[place]: 183 QRS: 15 QRSD: 113 T: -9 QT: 383 QTc: 480 Interpretive Statements Sinus rhythm Incomplete right bundle branch block Low voltage, precordial leads No previous ECG available for comparison Electronically Signed On 01-11-2021 10:59:43 PDT by Jerry Ugalde
--- NOTE | 2021-01-11 16:09 | Magnetic Resonance Report ---
MRI BRAIN WITHOUT CONTRAST INDICATION / CLINICAL INFORMATION: stroke. TECHNIQUE: Multiplanar, multisequence MR images of the brain were obtained. COMPARISON: Head CT 2020 FINDINGS: BRAIN / INTRACRANIAL CONTENTS: Large area of restricted diffusion is seen along the lateral aspect of the left occipital and parieta l lobes consistent with posterior division left MCA infarction. Medial occipital lobe and medial temp oral lobe are spared. In addition multiple smaller foci of restricted diffusion are present in the ri ght frontal and parietal lobes. Findings are consistent with acute MCA infarction as suggested on rec ent head CT. There is effacement of cortical sulci along the posterior and lateral convexity of the right occipita l and parietal lobes. Elsewhere the cortical sulci and ventricular system have an unremarkable appear ance. No evidence of intracranial hemorrhage or extra-axial fluid collection is seen. No significant areas of abnormal brain parenchymal signal intensity are identified. There is no indication of remote cortical infarction. Note is made of extensive dilated perivascular spaces in a bilateral gangliocapsular distribution as well as within the white matter of the centrum semiovale and subcortical white matter of both cerebra l hemispheres. The brainstem and cerebellum have an unremarkable appearance. MIDLINE STRUCTURES:No abnormalities are seen to involve the pituitary gland. Pineal region has an unr emarkable appearance. CRANIOCERVICAL JUNCTION: No abnormalities are identified at the craniocervical junction. VASCULAR FLOW-VOIDS: Normal flow-voids are present within the major intracranial vessels. ORBITS: The orbits have an unremarkable appearance. SINUSES / MASTOIDS: There is no indication of inflammatory disease in the paranasal sinuses or mastoi d air cells. IMPRESSION: 1. Findings confirm the presence of a large acute posterior division right MCA infarction involving t he lateral aspect of the right occipital and parietal lobes with smaller multiple foci of infarction in the right frontal lobe. 2. No indication of hemorrhagic transformation. Signer Name: Moisés Bonilla MD Signed: 01/11/2021 4:05 PM Workstation Name: [id number]
--- NOTE | 2021-01-11 16:27 | Vascular Lab Report ---
CLINICAL DATA: stroke TECHNICAL DATA: Imaging was performed from the base of the neck to the skull base using duplex sonography and color-f low imaging with emphasis on the carotid and vertebral arterial systems. RIGHT CAROTID ARTERY: The right internal carotid artery, right external carotid, and right common carotid artery all well i gabe and patent. Mild atherosclerotic plaque present at the carotid bifurcation. Right common carotid artery peak systolic velocity 116 cm/sec Right internal carotid artery peak systolic velocity 101 cm/sec Right internal carotid artery end diastolic velocity 49cm/sec Right internal carotid artery/right common carotid artery ratio 0.9 Vertebral artery flow is antegrade. LEFT CAROTID ARTERY The left internal carotid artery, left external carotid, and left common carotid artery all well imag ed and patent. Mild atherosclerotic plaque present at the carotid bifurcation. Left common carotid artery peak systolic velocity 186 cm/sec Left internal carotid artery peak systolic velocity 130 cm/sec Left internal carotid artery end diastolic velocity 38 cm/sec Left internal carotid artery/right common carotid artery ratio 0.7 Normal antegrade flow of the vertebral arteries. IMPRESSION: 1. Sonographic NASCET Index This study proposed the incorporation of distal ICA flow velocity information on the conventional car otid Doppler study improving the diagnostic accuracy of PSV 1. Right internal carotid artery demonstrates <15% stenosis: * deceleration spectral broadening with a peak systolic velocity (PSV) <125 cm/s Left internal carotid artery demonstrates 50-69% stenosis: * pansystolic spectral broadening with a PSV of >125 cm/s * and * end diastolic velocity (EDV) <110 cm/s or ICA/CCA PSV ratio >2 but <4 2. Less than 50% stenosis common carotid arteries. 3. Less than 50% stenosis external carotid arteries. 4. Antegrade flow both vertebral arteries. Signer Name: Soham Herman MD Signed: 01/11/2021 4:23 PM Workstation Name: [id number]
[2021-01-12] MEDS: SODIUM CHLORIDE 0.9% 1000 ML 1,000 ML IV SCH (10:18)
[2021-01-12] MEDS: ASPIRIN 325 MG TAB PO SCH (10:18)
[2021-01-12] MEDS: ACETAMINOPHEN 325 MG TAB PO PRN (10:18)
[2021-01-12] MEDS ORDERED: hydrALAZINE 20 MG/1 ML INJ IV PRN (10:21)
--- NOTE | 2021-01-12 11:01 | Discharge Summary ---
Providers - Providers Date of Admission: 01/10/21 15:18 Date of discharge: 01/12/21 Attending physician: TELMA BINGHAM 01/10/21 19:54 Occupational Therapy Evaluate and Treat [CONS] Routine Comment: Reason For Exam: Neuro deficits Physical Therapy Evaluation and Treat [CONS] Routine Comment: Reason For Exam: Neuro deficits Primary care physician: DIRECTOR HEMATOLOGY Hospitalization Condition: Serious Hospital course: Subjective Date of service: 01/11/21 Principal diagnosis: Acute CVA with left-sided weakness Interval history: This is a 70-year-old -[place] male who presents to the emergency department from home with a complaint of left hand numbness and left arm weakness that started about 3 hours ago. The patient has a past medical history of a previous stroke that he says did not leave him with any residual neurological deficits. He also has a history of hypertension and says that he recently was told he has developed diabetes. He did not take anything for his symptoms prior to presentation. He denies any headache, vision change, slurred speech, chest pain, back pain. No recent travel or sick contacts at home. He denies any tobacco or illicit drug use. No exacerbating or relieving factors. No fever or chills. No exposure to coronavirus. Day #2 01/11/2021 Left-sided weakness persists MRI report reviewed Day #3 01/12/2021 MRI shows large MCA infarct Patient is more monoplegic with weakness in the left upper extremity Power is about 2-3/5 on the left upper extremity Left lower extremity is 5/5 power Assessment and Plan - Patient Problems (1) Acute CVA (cerebrovascular accident) Current Visit: Yes Status: Acute Plan to address problem: Patient persists with monoplegia Left upper extremity weakness 2-3/5 power Patient to be discharged on aspirin Plavix and statins and have antihypertensives Patient counseled about compliance and follow-up with primary care and neurology as outpatient (2) Hypertensive urgency Current Visit: Yes Status: Chronic Plan to address problem: Blood pressure controlled patient Patient to be discharged on valsartan Coreg and amlodipine (3) CAD (coronary artery disease) Current Visit: Yes Status: Chronic Qualifiers: Coronary Disease-Associated Artery/Lesion type: [place] artery [place] vs. transplanted heart: [place] heart Associated angina: without angina Qualified Code(s): I25.10 - Atherosclerotic heart disease of [place] coronary artery without angina pectoris Plan to address problem: Patient on aspirin and Plavix (4) Old cerebrovascular accident (CVA) without late effect Current Visit: Yes Status: Chronic Plan to address problem: CVA 3 years ago without any residual deficits Continue aspirin and Plavix (5) Hyperlipidemia Current Visit: Yes Status: Acute Plan to address problem: Initiated on statins Discharge planning issues Discussed with case management Case management to arrange for home health visits with physical therapy Disposition: TO HOME OR SELFCARE Final Discharge Diagnosis (Prints w/discharge instructions): Acute CVA. Hypertensive emergency. Old CVA. Hyperlipidemia Time spent for discharge: 35 minutes - Discharge Diagnoses (1) Acute CVA (cerebrovascular accident) Status: Acute (2) Hypertensive urgency Status: Chronic (3) CAD (coronary artery disease) Status: Chronic Qualifiers: Coronary Disease-Associated Artery/Lesion type: [place] artery [place] vs. tr ansplanted heart: [place] heart Associated angina: without angina Qualified Code(s): I25.10 - Atherosclerotic heart disease of [place] coronary artery without angina pectoris (4) Old cerebrovascular accident (CVA) without late effect Status: Chronic (5) DVT prophylaxis Status: Acute Core Measure Documentation - Palliative Care Palliative Care/ Comfort Measures: Not Applicable - Core Measures Any of the following diagnoses?: none Exam - Constitutional Vitals: Temp Pulse Resp BP Pulse Ox 99.6 F 84 18 173/101 97 01/12/21 07:45 01/12/21 08:00 01/12/21 07:45 01/12/21 07:45 01/12/21 07:45 General appearance: Present: no acute distress, well-nourished - EENT Eyes: Present: PERRL ENT: hearing intact, clear oral mucosa - Neck Neck: Present: supple, normal ROM - Respiratory Respiratory effort: normal Respiratory: bilateral: CTA - Cardiovascular Heart rate: 78 Rhythm: regular Heart Sounds: Present: S1 & S2. Absent: rub, click - Extremities Extremities: no ischemia, pulses intact, pulses symmetrical, No edema Peripheral Pulses: within normal limits - Abdominal General gastrointestinal: Present: soft, non-tender, non-distended, normal bowel sounds Male genitourinary: Present: normal - Integumentary Integumentary: Present: clear, warm, dry - Musculoskeletal Musculoskeletal: gait normal, strength equal bilaterally - Psychiatric Psychiatric: appropriate mood/affect, intact judgment & insight - Neurologic Neurologic: CNII-XII intact, focal deficits (Left upper extremity weakness 3/5 power), moves all extremities, gait normal, other - Allied Health Allied health notes reviewed: nursing, case management Plan Activity: no restrictions Weight Bearing Status: Weight Bear as Tolerated Diet: low salt Special Instructions: home health RN (Home health with physical therapy and Occupational Therapy) Follow up with: PRIMARY CAREMD [Primary Care Provider] - 3-5 Days SOLANGE AZUL MD [Staff Physician] - 7 Days
[2021-01-12] MEDS: VALSARTAN 160MG TAB PO SCH ×2 (11:03→22:09)
[2021-01-12] MEDS: amLODIPine 5 MG TAB PO SCH (11:04)
[2021-01-12] MEDS: HEPARIN 5,000 UNIT/1 ML VIAL SUB-Q SCH ×2 (11:05→22:10)
[2021-01-12] MEDS: CLOPIDOGREL 75 MG TAB PO SCH (11:06)
[2021-01-12] MEDS: carvediloL 6.25 MG TAB PO SCH ×2 (11:08→22:10)
[2021-01-12] MEDS ORDERED: hydrALAZINE 20 MG/1 ML INJ IV STA (13:17)
[2021-01-13] MEDS: ASPIRIN 325 MG TAB PO SCH (09:01)
[2021-01-13] MEDS: carvediloL 6.25 MG TAB PO SCH (09:01)
[2021-01-13] MEDS: VALSARTAN 160MG TAB PO SCH (09:01)
[2021-01-13] MEDS: CLOPIDOGREL 75 MG TAB PO SCH (09:01)
[2021-01-13] MEDS: HEPARIN 5,000 UNIT/1 ML VIAL SUB-Q SCH (09:02)
[2021-01-13] MEDS: amLODIPine 5 MG TAB PO SCH (09:02)
[2021-01-13 12:18] VITALS: BP 147/96
== END 2021-01-13 13:36 | DRG 66 ==
LOC: ED 08:02 → 4A 15:18
PROVIDERS: ADMIT Internal Medicine; ATTEND Internal Medicine
DX: I63.9 Cerebral infarction, unspecified (principal); I16.0 Hypertensive urgency; G83.24 Monoplegia of upper limb affecting left nondominant side; R29.702 NIHSS score 2; I25.10 Atherosclerotic heart disease of native coronary artery without angina pectoris; E78.5 Hyperlipidemia, unspecified; Z79.899 Other long term (current) drug therapy; Z79.82 Long term (current) use of aspirin; Z82.49 Family history of ischemic heart disease and other diseases of the circulatory system
CPT/HCPCS: 36415; 70450; 70496; 70498; 70551; 80053; 80061; 80307; 80320; 81001; 82550; 82553; 83036; 84484; 85025; 85610; 85670; 85730; 93005; 93306; 93880; 94760; 96374; 96375; 96376; G0378; A9270-GY; G0480; J0360; J1644; J7030; Q9967